=== PATIENT | female | born 1975 | race Caucasian/White ===

== ENCOUNTER 2018-10-22 15:27 | Outpatient (CLI) | payer BC ==
--- NOTE | 2018-10-22 15:40 | RAD ---
TWO VIEWS CHEST: Date: 10-22-18 Provided Clinical History: Cough. FINDINGS: Cardiac and mediastinal silhouette is within normal limits. Lungs appear clear. No pleural fluid or p neumothorax apparent. IMPRESSION: No evidence for an acute cardiopulmonary process. POS: [facility]
== END 2018-10-22 15:28 | disposition home or self-care (01) ==
LOC: RAD-FRANK 15:27
PROVIDERS: ATTEND Nurse Practitioner Family
DX: R05 Cough (principal)
CPT/HCPCS: 71046